=== PATIENT | male | born 1985 | race Caucasian/White ===

== ENCOUNTER 2024-03-09 01:47 | Emergency (ER) | payer OTHER, SELFPAY ==
--- NOTE | ~2024-03-09 | XR_ITS ---
Portable chest x-ray Comparison: None Clinical History: Painful inspiration Findings: Lungs are clear, without focal consolidation or pleural effusion. Cardiomediastinal silho uette is stable. Bones and soft tissues are unremarkable. Impression: Clear lungs Reviewed, dictated and finalized at location M. IALTY FINISHING UTILITY PERSON Impression: Clear lungs
[2024-03-09 01:51] VITALS: BP 166/92; PULSE 93; RESP 18; TEMP 36.8; O2SAT 97
--- NOTE | 2024-03-09 01:55 | ECG_ITS ---
Test Date: 2024-03-09 02:06:52 Measurements Intervals [place] Rate: 88 P: 64 LA: 145 QRS: 12 QRSD: 100 T: 42 QT: 342 QTc: 414 Interpretive Statements SINUS RHYTHM No previous ECG available for comparison Electronically Signed On 03-12-2024 14:54:35 CENTRIFUGAL MACHINE TENDER by Osbaldo Morillo M.D.
[2024-03-09] MEDS: ACETAMINOPHEN 500 MG TABLET 1000 MG PO (05:33)
[2024-03-09 05:47] LABS: Basophils Absolute Auto 0.1 K/mm3 (0.0-0.1); Basophils Percent Auto 0.5 % (0.2-1.2); Eosinophils Absolute Auto 0.2 K/mm3 (0-0.3); Eosinophils Percent Auto 1.7 % (0-4.4); Hematocrit 39.2 % (42.0-52.0); Hemoglobin 12.5 g/dL (14.0-18.0); Immature Granulocyte Absolute 0.05 K/mm3 (0.00-0.031); Immature Granulocyte Percent A 0.5 % (0-0.5); Lymphocytes Absolute Auto 1.71 K/mm3 (0.9-3.2); Lymphocytes Percent Auto 17.8 % (18.3-44.2); Mean Corpuscular HGB Conc 31.9 g/dl (32-36); Mean Corpuscular Hemoglobin 27.4 pg (26-34); Mean Platelet Volume 9.7 fl (7.4-10.4); Monocytes Absolute Auto 0.7 K/mm3 (0.1-0.6); Monocytes Percent Auto 7.4 % (2.6-8.5); Neutrophils Absolute Auto 6.9 K/mm3 (1.3-6.7); Neutrophils Percent Auto 72.1 % (45.5-73.1); Platelet Count Result 314 k/mm3 (150-375); Red Blood Count 4.56 M/mm3 (4.6-6.20); Red Cell Distribution Width 14.8 % (11.5-14.5); White Blood Count 9.6 K/mm3 (4.5-10.0)
--- NOTE | 2024-03-09 05:54 | ED.GENADULT ---
HPI - General Adult General Chief complaint: Shortness of Breath/Dyspnea <Rex Ruth MD - Last Filed: 03/09/24 05:59> Stated complaint: pain with inspiration <Rex Ruth MD - Last Filed: 03/09/24 05:59> Time Seen by Provider: 03/09/24 05:14 <Rex Ruth MD - Last Filed: 03/09/24 05:59> History of Present Illness HPI narrative: This is a 39-year-old male presenting ED with chief complaint of chest pain. Patient was driving to work last night around 11 when he developed a heaviness in the left side of his chest. It was nonradiating, moderate intensity and has been fluctuating since then. He has never had pain like this before there are no exacerbating or alleviating factors. It was not associated with exertion diaphoresis or vomiting. He has not had any flu-like symptoms over the last week. Patient does not have any risk factors for DVT PE or lower extremity edema. <Rex Ruth MD - Last Filed: 03/09/24 05:59> Related Data Allergies/adverse reactions: Allergies Allergy/AdvReac Type Severity Reaction Status Date / Time No Known Drug Allergies Allergy Unknown Verified 05/31/15 12:37 <Rex Ruth MD - Last Filed: 03/09/24 05:59> Exam Narrative: APPEARANCE: No apparent distress. Head: atraumatic. EYES: EOMI, NOSE: Atraumatic NECK: Trachea midline RESPIRATORY: No increased rate of breathing Clear to auscultation CARDIOVASCULAR: RRR, no peripheral edema ABDOMINAL: Non-distended soft nontender MUSCULOSKELETAl: No obvious deformities NEURO: Alert. Moving 4/4 extremities SKIN:: Warm, dry. Normal color PSYCHIATRIC: Normal affect <eRx Ruth MD - Last Filed: 03/09/24 05:59> Course Course Emergency Course: Workup essentially unremarkable aside from mild anemia with which there is no prior for comparison. Dimer negative. 2 negative troponins. I did reassess patient at bedside who states his pain is better, approximately 5/10 in severity. He will be given a dose of ketorolac. He is advised follow-up for outpatient workup. He does not currently have a primary care physician so referral/contact information given for 1. Discharged with prescriptions for [id number] analgesics. Patient states he is supposed to work at 10:00 a.m.; I offered a work note and included in his discharge instructions. <Pamela Gil MD - Last Filed: 03/09/24 09:49> Vital Signs Vital signs: Vital Signs Temperature 98.2 F 03/09/24 01:51 Pulse Rate 93 03/09/24 01:51 Respiratory Rate 18 03/09/24 01:51 Blood Pressure 166/92 H 03/09/24 01:51 Pulse Oximetry 97 03/09/24 01:51 Oxygen Delivery Room Air 03/09/24 01:51 Temperature 98.2 F 03/09/24 01:51 Pulse Rate 80 03/09/24 09:00 Respiratory Rate 16 03/09/24 09:00 Blood Pressure 129/77 03/09/24 09:00 Pulse Oximetry 97 03/09/24 09:00 Oxygen Delivery Room Air 03/09/24 01:51 <Rex Ruth MD - Last Filed: 03/09/24 05:59> Vital Signs Temperature 98.2 F 03/09/24 01:51 Pulse Rate 93 03/09/24 01:51 Respiratory Rate 18 03/09/24 01:51 Blood Pressure 166/92 H 03/09/24 01:51 Pulse Oximetry 97 03/09/24 01:51 Oxygen Delivery Room Air 03/09/24 01:51 Temperature 98.2 F 03/09/24 01:51 Pulse Rate 80 03/09/24 09:00 Respiratory Rate 16 03/09/24 09:00 Blood Pressure 129/77 03/09/24 09:00 Pulse Oximetry 97 03/09/24 09:00 Oxygen Delivery Room Air 03/09/24 01:51 <Pamela Gil MD - Last Filed: 03/09/24 09:49> Medical Decision Making MDM Narrative Medical decision making narrative: -Course: 39-year-old male presenting with left-sided chest pain. Chest pain workup obtain including BNP and D-dimer obtained. . COVID swabs ordered. Patient signed out to the oncoming physician pending completion of his workup. -DDX includes but is not limited to: ACS, pleurisy, pneumonia, pneumothorax, viral syndrome -Independent interpretation of studies: Independent EKG interpretation: Rhythm [sinus], Rate [88], [place] -[normal], NM -[normal], QRS [narrow], QTC [normal], T waves -[negative for concerning inversions], ST Segments - [Negative for concerning elevations] Final interpretations: [Normal Sinus Rhythm] - <Rex Ruth MD - Last Filed: 03/09/24 05:59> Vital Signs Vital Signs: Vital Signs Temperature 98.2 F 03/09/24 01:51 Pulse Rate 93 03/09/24 01:51 Respiratory Rate 18 03/09/24 01:51 Blood Pressure 166/92 H 03/09/24 01:51 Pulse Oximetry 97 03/09/24 01:51 Oxygen Delivery Room Air 03/09/24 01:51 Temperature 98.2 F 03/09/24 01:51 Pulse Rate 80 03/09/24 09:00 Respiratory Rate 16 03/09/24 09:00 Blood Pressure 129/77 03/09/24 09:00 Pulse Oximetry 97 03/09/24 09:00 Oxygen Delivery Room Air 03/09/24 01:51 <Rex Ruth MD - Last Filed: 03/09/24 05:59> Vital Signs Temperature 98.2 F 03/09/24 01:51 Pulse Rate 93 03/09/24 01:51 Respiratory Rate 18 03/09/24 01:51 Blood Pressure 166/92 H 03/09/24 01:51 Pulse Oximetry 97 03/09/24 01:51 Oxygen Delivery Room Air 03/09/24 01:51 Temperature 98.2 F 03/09/24 01:51 Pulse Rate 80 03/09/24 09:00 Respiratory Rate 16 03/09/24 09:00 Blood Pressure 129/77 03/09/24 09:00 Pulse Oximetry 97 03/09/24 09:00 Oxygen Delivery Room Air 03/09/24 01:51 <Pamela Gil MD - Last Filed: 03/09/24 09:49> Lab Data Result diagrams: 03/09/24 05:39 03/09/24 05:39 <Rex Ruth MD - Last Filed: 03/09/24 05:59> Labs: Lab Results 03/09/24 03/09/24 03/09/24 Range/Units 05:39 05:39 05:39 WBC 9.6 (4.5-10.0) K/mm3 RBC 4.56 L (4.6-6.20) M/mm3 Hgb 12.5 L (14.0-18.0) g/dL Hct 39.2 L (42.0-52.0) % MCV 86.0 (80-100) fl MCH 27.4 (26-34) pg MCHC 31.9 L (32-36) g/dl RDW 14.8 H (11.5-14.5) % Plt Count 314 (150-375) k/mm3 MPV 9.7 (7.4-10.4) fl Immature Gran % (Auto) 0.5 (0-0.5) % Neut % (Auto) 72.1 (45.5-73.1) % Lymph % (Auto) 17.8 L (18.3-44.2) % [place] % (Auto) 7.4 (2.6-8.5) % Eos % (Auto) 1.7 (0-4.4) % Baso % (Auto) 0.5 (0.2-1.2) % Lymph # (Auto) 1.71 (0.9-3.2) K/mm3 [place] # (Auto) 0.7 H (0.1-0.6) K/mm3 Eos # (Auto) 0.2 (0-0.3) K/mm3 Baso # (Auto) 0.1 (0.0-0.1) K/mm3 Abs Immat Gran (auto) 0.05 H (0.00-0.031) K/mm3 Absolute Neuts (auto) 6.9 H (1.3-6.7) K/mm3 Absolute Nucleated RBC 0.000 (0.0-0.012) K/mm3 Nucleated RBC % 0.0 (0.0-0.2) % PT Cancelled 13.4 INR Cancelled 1.0 APTT Cancelled D-Dimer (<0.48) ug/mL Sodium (137-145) mmol/L Potassium (3.4-5.0) mmol/L Chloride (98-107) mmol/L Carbon Dioxide (22-30) mmol/L Anion Gap (4-12) mmol/L BUN (9-20) mg/dL Creatinine (0.7-1.3) mg/dL Estim Creat Clear Calc ml/min Estimated GFR (59 - ) Glucose (65-110) mg/dL Calcium (8.4-10.2) mg/dL Total Bilirubin (0.2-1.3) mg/dL AST (17-59) U/L ALT (6-50) U/L Alkaline Phosphatase (38-126) U/L Troponin I (0.000-0.034) ng/mL NT-Pro-B Natriuret Pep (19.9-100) pg/mL Total Protein (6.3-8.2) g/dL Albumin (3.5-5.1) g/dL Lipase (23-300) U/L Influenza A (RT-PCR) (Negative) Influenza B (RT-PCR) (Negative) RSV (RT-PCR) (Negative) SARS-CoV-2 RNA (RT-PCR) (Negative) 03/09/24 03/09/24 Range/Units 05:39 08:29 WBC (4.5-10.0) K/mm3 RBC (4.6-6.20) M/mm3 Hgb (14.0-18.0) g/dL Hct (42.0-52.0) % MCV (80-100) fl MCH (26-34) pg MCHC (32-36) g/dl RDW (11.5-14.5) % Plt Count (150-375) k/mm3 MPV (7.4-10.4) fl Immature Gran % (Auto) (0-0.5) % Neut % (Auto) (45.5-73.1) % Lymph % (Auto) (18.3-44.2) % [place] % (Auto) (2.6-8.5) % Eos % (Auto) (0-4.4) % Baso % (Auto) (0.2-1.2) % Lymph # (Auto) (0.9-3.2) K/mm3 [place] # (Auto) (0.1-0.6) K/mm3 Eos # (Auto) (0-0.3) K/mm3 Baso # (Auto) (0.0-0.1) K/mm3 Abs Immat Gran (auto) (0.00-0.031) K/mm3 Absolute Neuts (auto) (1.3-6.7) K/mm3 Absolute Nucleated RBC (0.0-0.012) K/mm3 Nucleated RBC % (0.0-0.2) % PT INR APTT 29.3 D-Dimer 0.44 (<0.48) ug/mL Sodium 139 (137-145) mmol/L Potassium 4.2 (3.4-5.0) mmol/L Chloride 105 (98-107) mmol/L Carbon Dioxide 30 (22-30) mmol/L Anion Gap 4 (4-12) mmol/L BUN 20 (9-20) mg/dL Creatinine 0.80 (0.7-1.3) mg/dL Estim Creat Clear Calc 151 ml/min Estimated GFR > 60 (59 - ) Glucose 150 H (65-110) mg/dL Calcium 9.1 (8.4-10.2) mg/dL Total Bilirubin 0.4 (0.2-1.3) mg/dL AST 19 (17-59) U/L ALT 20 (6-50) U/L Alkaline Phosphatase 94 (38-126) U/L Troponin I < 0.012 < 0.012 (0.000-0.034) ng/mL NT-Pro-B Natriuret Pep < 20 (19.9-100) pg/mL Total Protein 7.0 (6.3-8.2) g/dL Albumin 4.0 (3.5-5.1) g/dL Lipase 35 (23-300) U/L Influenza A (RT-PCR) Negative (Negative) Influenza B (RT-PCR) Negative (Negative) RSV (RT-PCR) Negative (Negative) SARS-CoV-2 RNA (RT-PCR) Negative (Negative) <Rex Ruth MD - Last Filed: 03/09/24 05:59> Lab Results 03/09/24 03/09/24 03/09/24 Range/Units 05:39 05:39 05:39 WBC 9.6 (4.5-10.0) K/mm3 RBC 4.56 L (4.6-6.20) M/mm3 Hgb 12.5 L (14.0-18.0) g/dL Hct 39.2 L (42.0-52.0) % MCV 86.0 (80-100) fl MCH 27.4 (26-34) pg MCHC 31.9 L (32-36) g/dl RDW 14.8 H (11.5-14.5) % Plt Count 314 (150-375) k/mm3 MPV 9.7 (7.4-10.4) fl Immature Gran % (Auto) 0.5 (0-0.5) % Neut % (Auto) 72.1 (45.5-73.1) % Lymph % (Auto) 17.8 L (18.3-44.2) % [place] % (Auto) 7.4 (2.6-8.5) % Eos % (Auto) 1.7 (0-4.4) % Baso % (Auto) 0.5 (0.2-1.2) % Lymph # (Auto) 1.71 (0.9-3.2) K/mm3 [place] # (Auto) 0.7 H (0.1-0.6) K/mm3 Eos # (Auto) 0.2 (0-0.3) K/mm3 Baso # (Auto) 0.1 (0.0-0.1) K/mm3 Abs Immat Gran (auto) 0.05 H (0.00-0.031) K/mm3 Absolute Neuts (auto) 6.9 H (1.3-6.7) K/mm3 Absolute Nucleated RBC 0.000 (0.0-0.012) K/mm3 Nucleated RBC % 0.0 (0.0-0.2) % PT Cancelled 13.4 INR Cancelled 1.0 APTT Cancelled D-Dimer (<0.48) ug/mL Sodium (137-145) mmol/L Potassium (3.4-5.0) mmol/L Chloride (98-107) mmol/L Carbon Dioxide (22-30) mmol/L Anion Gap (4-12) mmol/L BUN (9-20) mg/dL Creatinine (0.7-1.3) mg/dL Estim Creat Clear Calc ml/min Estimated GFR (59 - ) Glucose (65-110) mg/dL Calcium (8.4-10.2) mg/dL Total Bilirubin (0.2-1.3) mg/dL AST (17-59) U/L ALT (6-50) U/L Alkaline Phosphatase (38-126) U/L Troponin I (0.000-0.034) ng/mL NT-Pro-B Natriuret Pep (19.9-100) pg/mL Total Protein (6.3-8.2) g/dL Albumin (3.5-5.1) g/dL Lipase (23-300) U/L Influenza A (RT-PCR) (Negative) Influenza B (RT-PCR) (Negative) RSV (RT-PCR) (Negative) SARS-CoV-2 RNA (RT-PCR) (Negative) 03/09/24 03/09/24 Range/Units 05:39 08:29 WBC (4.5-10.0) K/mm3 RBC (4.6-6.20) M/mm3 Hgb (14.0-18.0) g/dL Hct (42.0-52.0) % MCV (80-100) fl MCH (26-34) pg MCHC (32-36) g/dl RDW (11.5-14.5) % Plt Count (150-375) k/mm3 MPV (7.4-10.4) fl Immature Gran % (Auto) (0-0.5) % Neut % (Auto) (45.5-73.1) % Lymph % (Auto) (18.3-44.2) % [place] % (Auto) (2.6-8.5) % Eos % (Auto) (0-4.4) % Baso % (Auto) (0.2-1.2) % Lymph # (Auto) (0.9-3.2) K/mm3 [place] # (Auto) (0.1-0.6) K/mm3 Eos # (Auto) (0-0.3) K/mm3 Baso # (Auto) (0.0-0.1) K/mm3 Abs Immat Gran (auto) (0.00-0.031) K/mm3 Absolute Neuts (auto) (1.3-6.7) K/mm3 Absolute Nucleated RBC (0.0-0.012) K/mm3 Nucleated RBC % (0.0-0.2) % PT INR APTT 29.3 D-Dimer 0.44 (<0.48) ug/mL Sodium 139 (137-145) mmol/L Potassium 4.2 (3.4-5.0) mmol/L Chloride 105 (98-107) mmol/L Carbon Dioxide 30 (22-30) mmol/L Anion Gap 4 (4-12) mmol/L BUN 20 (9-20) mg/dL Creatinine 0.80 (0.7-1.3) mg/dL Estim Creat Clear Calc 151 ml/min Estimated GFR > 60 (59 - ) Glucose 150 H (65-110) mg/dL Calcium 9.1 (8.4-10.2) mg/dL Total Bilirubin 0.4 (0.2-1.3) mg/dL AST 19 (17-59) U/L ALT 20 (6-50) U/L Alkaline Phosphatase 94 (38-126) U/L Troponin I < 0.012 < 0.012 (0.000-0.034) ng/mL NT-Pro-B Natriuret Pep < 20 (19.9-100) pg/mL Total Protein 7.0 (6.3-8.2) g/dL Albumin 4.0 (3.5-5.1) g/dL Lipase 35 (23-300) U/L Influenza A (RT-PCR) Negative (Negative) Influenza B (RT-PCR) Negative (Negative) RSV (RT-PCR) Negative (Negative) SARS-CoV-2 RNA (RT-PCR) Negative (Negative) <Pamela Gil MD - Last Filed: 03/09/24 09:49> Imaging Data Radiologist's impression: Impressions Chest X-Ray 03/09/24 06:17 Impression: Clear lungs <Pamela Gil MD - Last Filed: 03/09/24 09:49> Discharge Plan Discharge Clinical Impression: Atypical chest pain, Normocytic anemia <Rex Ruth MD - Last Filed: 03/09/24 05:59> Patient Disposition: Home, Self-Care <Rex Ruth MD - Last Filed: 03/09/24 05:59> Condition: Stable <Rex Ruth MD - Last Filed: 03/09/24 05:59> Instructions: Antibiotic Form, Chest Pain (ED), Anemia (ED) <Rex Ruth MD - Last Filed: 03/09/24 05:59> Additional Instructions: No clear cause of your symptoms. Follow-up with your primary care physician. Because you do not have 1 the name of the doctors listed below. Alternatively the name of a proof machine operator supervisor is listed below. Acetaminophen/Tylenol (maximum 4000 mg per day) is safe to take with NSAIDs (ibuprofen/Motrin) for pain relief. <Rex Ruth MD - Last Filed: 03/09/24 05:59> Patient Language: Georgian <Rex Ruth MD - Last Filed: 03/09/24 05:59> Prescriptions: New ibuprofen 600 mg tablet 600 mg PO TID PRN (Reason: pain) Qty: 20 0RF acetaminophen 500 mg capsule 1,000 mg PO Q6H PRN (Reason: pain) Qty: 20 0RF <Rex Ruth MD - Last Filed: 03/09/24 05:59> Follow-up/Referrals: Seamus Leonardo MD [Physician] - (cardiology) PHYSICIAN,AUTO MECHANIC [Primary Care Provider] - Salvador Bhakta MD [Physician] - (PCP) <Rex Ruth MD - Last Filed: 03/09/24 05:59> Stand Alone Forms: Work/School Release IP <Rex Ruth MD - Last Filed: 03/09/24 05:59> Time of Disposition: 09:48 <Rex Ruth MD - Last Filed: 03/09/24 05:59> 09:48 <Pamela Gil MD - Last Filed: 03/09/24 09:49>
[2024-03-09 05:58] LABS: Alanine Aminotransferase 20 U/L (6-50); Alkaline Phosphatase 94 U/L (38-126); Anion Gap 4 mmol/L (4-12); Aspartate Amino Transferase 19 U/L (17-59); Bilirubin,Total 0.4 mg/dL (0.2-1.3); Blood Urea Nitrogen 20 mg/dL (9-20); Calcium 9.1 mg/dL (8.4-10.2); Carbon Dioxide 30 mmol/L (22-30); Chloride 105 mmol/L (98-107); Estimated CRCL calculation 151 ml/min; Estimated Glomerular Filt Rate > 60; Glucose 150 mg/dL (65-110); Lipase 35 U/L (23-300); Potassium 4.2 mmol/L (3.4-5.0); Prothrombin Time 13.4 Seconds (11.1-14.7); Sodium 139 mmol/L (137-145)
[2024-03-09 05:59] LABS: Partial Thromboplastin Time 29.3 Seconds (22.3-36.8)
[2024-03-09 06:09] LABS: NT Pro B Type Natriuretic Pept < 20 pg/mL (19.9-100); Troponin I < 0.012 ng/mL (0.000-0.034)
[2024-03-09 06:23] LABS: Influenza A QL RT-PCR Negative (Negative); Influenza B QL RT-PCR Negative (Negative); RSV RNA, RT-PCR Negative (Negative); SARS-CoV-2 RNA PCR Negative (Negative)
[2024-03-09 07:12] LABS: D Dimer 0.44 ug/mL (<0.48)
[2024-03-09 08:00] VITALS: BP 144/78; PULSE 84; RESP 16; O2SAT 99
[2024-03-09 08:57] LABS: Troponin I < 0.012 ng/mL (0.000-0.034)
[2024-03-09 09:00] VITALS: BP 129/77; PULSE 80; RESP 16; O2SAT 97
[2024-03-09] MEDS: KETOROLAC 30 MG/ML VIAL (*BKC) 15 MG IM (10:05)
[2024-03-09 10:15] VITALS: BP 130/76; PULSE 80; RESP 16; O2SAT 97
--- OUTSIDE RECORDS SUMMARY | 2024-03-16 04:59 | XMS_ITS | Continuity of Care Document ---
Author Name Carmine Weaver Address [address] [facility] [place] [address] Organization Unknown Address [address] [place] [address] Medications Problems
--- OUTSIDE RECORDS SUMMARY | 2024-03-16 04:59 | XMS_ITS | Continuity of Care Document ---
Author Name Carmine Weaver Address [address] [place], [place] [id number] [place] [address] Organization Unknown Address [address] [place], [place] [id number] [place] [address] Medications Problems
== END 2024-03-09 10:15 | disposition home or self-care (01) ==
PROVIDERS: Emergency Medicine; Emergency Provider Student in an Organized Health Care Education/Training Program
DX: R07.89 Other chest pain (principal); D64.9 Anemia, unspecified; Z20.822 Contact with and (suspected) exposure to COVID-19
CPT/HCPCS: 36415; 71045; 80053; 83690; 83880; 84484; 85025; 85380; 85610; 85730; 87637; 93005; 96372; 99284; A9270; J1885

== ENCOUNTER 2024-07-18 06:39 | Emergency (ER) | payer SELFPAY ==
--- NOTE | ~2024-07-18 | XR_ITS ---
XR knee LT 3V 07/18/2024 07:47 Indication: Left knee pain Procedure: 3 views left knee Comparison: No prior studies for comparison. 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 No joint effusion. No fracture or traumati c malalignment. Impression: 1: No acute fracture. Reviewed, dictated and finalized at location A. Impression: 1: No acute fracture.
[2024-07-18 06:41] VITALS: BP 182/68; PULSE 97; RESP 19; TEMP 37.2; O2SAT 97
--- NOTE | 2024-07-18 08:11 | ED.GENADULT ---
HPI - General Adult General Chief complaint: Extremity Injury, Lower Stated complaint: L knee pain/injury Time Seen by Provider: 07/18/24 07:05 History of Present Illness HPI narrative: Patient 39-year-old gentleman presents emergency department chief complaint of left knee pain patient reports that he was walking and his knee gave out patient reports he fell on concrete reports he feels a bump on his left patient does report that he has history of arthritis in his knees the patient reports no head injury denies loss of consciousness. Related Data Allergies Allergy/AdvReac Type Severity Reaction Status Date / Time No Known Allergies Allergy Verified 07/18/24 06:40 Review of Systems Review of Systems: A 10 system review of systems was completed on the patient and is negative except for what is stated in the HPI. Nursing and ancillary documentation was reviewed. Exam Narrative: GENERAL: Well-appearing, well-nourished, and in no acute distress. HEAD: Normocephalic, atraumatic. EYES: PERRLA and EOMI. ENT: Nares clear, no rhinorrhea or epistaxis. Mucous membranes moist. NECK: Supple. CHEST: Clear to auscultation. No respiratory distress. HEART: Regular rate and rhythm. No murmur heard. Normal peripheral pulses. ABDOMEN: Soft, nontender, nondistended, normal active bowel sounds. EXTREMITIES: Normal range of motion mild tenderness to palpation the left knee. No edema. SKIN: Warm, dry, no rash. NEURO: No focal deficits. Alert and oriented x3. PSYCH: Normal mood and affect. Course Vital Signs Vital signs: Vital Signs Temperature 37.2 C 07/18/24 06:41 Pulse Rate 97 07/18/24 06:41 Respiratory Rate 19 07/18/24 06:41 Blood Pressure 182/68 H 07/18/24 06:41 Pulse Oximetry 97 07/18/24 06:41 Oxygen Delivery Room Air 07/18/24 06:41 Temperature 37.2 C 07/18/24 06:41 Pulse Rate 97 07/18/24 06:41 Respiratory Rate 19 07/18/24 06:41 Blood Pressure 182/68 H 07/18/24 06:41 Pulse Oximetry 97 07/18/24 06:41 Oxygen Delivery Room Air 07/18/24 06:41 Medical Decision Making MDM Narrative Medical decision making narrative: Differential diagnosis includes knee sprain, fracture, contusion Plain film x-rays were obtained showed no evidence of fracture Patient was placed in a Fox wrap and will be given crutches for weight-bearing as tolerated Vital Signs Vital Signs: Vital Signs Temperature 37.2 C 07/18/24 06:41 Pulse Rate 97 07/18/24 06:41 Respiratory Rate 19 07/18/24 06:41 Blood Pressure 182/68 H 07/18/24 06:41 Pulse Oximetry 97 07/18/24 06:41 Oxygen Delivery Room Air 07/18/24 06:41 Temperature 37.2 C 07/18/24 06:41 Pulse Rate 97 07/18/24 06:41 Respiratory Rate 19 07/18/24 06:41 Blood Pressure 182/68 H 07/18/24 06:41 Pulse Oximetry 97 07/18/24 06:41 Oxygen Delivery Room Air 07/18/24 06:41 Discharge Plan Discharge Clinical Impression: Left knee sprain Patient Disposition: Home Condition: Stable Instructions: Antibiotic Form, Knee Sprain (ED), Crutch Instructions (ED) Patient Language: Slovenian Prescriptions: No Action ibuprofen 600 mg tablet 600 mg PO TID PRN (Reason: pain) Qty: 20 0RF acetaminophen 500 mg capsule 1,000 mg PO Q6H PRN (Reason: pain) Qty: 20 0RF Follow-up/Referrals: Salvador Bhakta MD [Physician] - UNKNOWN,DOCTOR [Primary Care Provider] - Time of Disposition: 08:13
[2024-07-18] MEDS: HYDROcodone/acetaminophen (*CRX) 5-325 MG TABLET 1 TAB PO (08:27)
== END 2024-07-18 08:34 | disposition home or self-care (01) ==
PROVIDERS: Emergency Provider Emergency Medicine
DX: S83.92XA Sprain of unspecified site of left knee, initial encounter (principal); M17.0 Bilateral primary osteoarthritis of knee; W18.39XA Other fall on same level, initial encounter
CPT/HCPCS: 73562; 99283; A9270

== ENCOUNTER 2024-10-04 07:26 | Emergency (ER) | payer SELFPAY ==
--- NOTE | ~2024-10-04 | XR_ITS ---
HISTORY: pain at AC process COMPARISON: None TECHNIQUE: 3 views of the right shoulder were performed. FINDINGS: No acute fracture. Inferior migration of the humeral head during internal rotation is identified suggesting rotator cuff pathology, possibly a rotator cuff tear. Widening of the acromioclavicular joint space, suggesting acromioclavicular joint injury. The visualized portion of the adjacent right lung is clear. The humeral head is well seated within the glenoid fossa. IMPRESSION: No acute fracture or anterior dislocation. Inferior migration of the humeral head during internal rotation consistent with rotator cuff injury v ersus internal impingement syndrome. Acromioclavicular joint injury is also detected. Reviewed, dictated and finalized at location A. IMPRESSION: No acute fracture or anterior dislocation. Inferior migration of the humeral head during internal rotation consistent with rotator cuff injury versus internal impingement syndrome. Acromioclavicular joint injury is also detected.
[2024-10-04 07:30] VITALS: BP 139/99; PULSE 99; RESP 17; TEMP 37.2; O2SAT 99
--- NOTE | 2024-10-04 07:46 | ED_ITS ---
HPI - General Adult General Chief complaint: Extremity Injury, Upper Stated complaint: R SHOULDER PAIN Time Seen by Provider: 10/04/24 07:31 History of Present Illness HPI narrative: Patient is a 39-year-old male who presents ER with right shoulder pain. Ongoing for 2 days. He is to shoulder to slammed a door and has had discomfort since then. Moves up into his neck at the trapezius region. No range of motion limitation at the shoulder has pain with activation of the deltoid and lifting his hand above his head. No numbness or tingling. Related Data Allergies Allergy/AdvReac Type Severity Reaction Status Date / Time No Known Allergies Allergy Verified 10/04/24 07:36 Review of Systems Constitutional: Constitutional: Reports no additional constitutional complaints Musculoskeletal: Musculoskeletal: Reports no additional musculoskeletal complaints Integumentary/Breasts: Skin/Breast: Reports system reviewed and no additional complaints, except as docu PMFSH Past Medical History Medical History (Updated 10/04/24 @ 08:34 by Harlan Head MD) Healthy adult male Exam Narrative: GENERAL: Well-appearing, well-nourished, and in no acute distress. HEAD: Normocephalic, atraumatic. ENT: Mucous membranes moist. CHEST: Clear to auscultation. No respiratory distress. HEART: Regular rate and rhythm. Normal peripheral pulses. EXTREMITIES: Patient able to perform internal external rotation as well as abduction and forward flexion without significant issue. Mild discomfort with lifting his hand above his head. No edema. Mild tenderness at the AC process of the right shoulder. Tender over the right trapezius musculature. SKIN: Warm, dry, no rash. NEURO: Alert and oriented x3. PSYCH: Normal mood and affect. Course Course Emergency Course: Imaging with evidence of shoulder separation and possible rotator cuff tear. Will give anti-inflammatories and follow up to ortho. Vital Signs Vital signs: Vital Signs Temperature 99.0 F 10/04/24 07:30 Pulse Rate 99 10/04/24 07:30 Respiratory Rate 17 10/04/24 07:30 Blood Pressure 139/99 H 10/04/24 07:30 Pulse Oximetry 99 10/04/24 07:30 Temperature 99.0 F 10/04/24 07:30 Pulse Rate 99 10/04/24 07:30 Respiratory Rate 17 10/04/24 07:30 Blood Pressure 139/99 H 10/04/24 07:30 Pulse Oximetry 99 10/04/24 07:30 Medical Decision Making Vital Signs Vital Signs: Vital Signs Temperature 99.0 F 10/04/24 07:30 Pulse Rate 99 10/04/24 07:30 Respiratory Rate 17 10/04/24 07:30 Blood Pressure 139/99 H 10/04/24 07:30 Pulse Oximetry 99 10/04/24 07:30 Temperature 99.0 F 10/04/24 07:30 Pulse Rate 99 10/04/24 07:30 Respiratory Rate 17 10/04/24 07:30 Blood Pressure 139/99 H 10/04/24 07:30 Pulse Oximetry 99 10/04/24 07:30 Imaging Data Radiologist's impression: ITS Impressions Shoulder X-Ray 10/04/24 08:06 IMPRESSION: No acute fracture or anterior dislocation. Inferior migration of the humeral head during internal rotation consistent with rotator cuff injury versus internal impingement syndrome. Acromioclavicular joint injury is also detected. Discharge Plan Discharge Clinical Impression: shoulder, Injury of right rotator cuff Patient Disposition: Home Condition: Stable Instructions: Acromioclavicular Separation (ED), Rotator Cuff Injury (ED), Rotator Cuff Injury Exercises (DC) Additional Instructions: Return ER if you have worsening shoulder pain, have fever 100.4? F, you suffered a new injury, you have additional concerns. Jaw lift anything heavier than a milk jug until you can be evaluated by Orthopedic surgery. Patient Language: Mexican Prescriptions: New naproxen 375 mg tablet 375 mg PO BID Qty: 14 0RF No Action ibuprofen 600 mg tablet 600 mg PO TID PRN (Reason: pain) Qty: 20 0RF acetaminophen 500 mg capsule 1,000 mg PO Q6H PRN (Reason: pain) Qty: 20 0RF Follow-up/Referrals: PHYSICIAN,PLUG OVERWRAP MACHINE TENDER [Primary Care Provider] - Rufus Watson MD [Physician] - 1 Week Stand Alone Forms: Work/School Release IP
[2024-10-04] MEDS: KETOROLAC (*BKC) 60 MG/2 ML VIAL IM (07:47)
== END 2024-10-04 08:47 | disposition home or self-care (01) ==
PROVIDERS: Emergency Provider Emergency Medicine
DX: S43.101A Unspecified dislocation of right acromioclavicular joint, initial encounter (principal); S46.001A Unspecified injury of muscle(s) and tendon(s) of the rotator cuff of right shoulder, initial encounter; W22.8XXA Striking against or struck by other objects, initial encounter
CPT/HCPCS: 73030; 96372; 99283; J1885